=== PATIENT | female | born 1990 | race Caucasian/White ===

== ENCOUNTER 2016-05-22 09:06 | Emergency (ER) | payer BC ==
[~2016-05-22] VITALS: Ht 170.2 cm; Wt 81.6 kg
[2016-05-22 09:20] VITALS: BP 134/75
[2016-05-22] MEDS ORDERED: IV NORMAL SALINE 1000ML BAG 1,000 ML IV ONE (10:00)
[2016-05-22] MEDS ORDERED: ONDANSETRON PF 4 MG/2 ML VIAL. IV ONE (10:00)
[2016-05-22] MEDS ORDERED: KETOROLAC TROMETHAMINE 30 MG/ML SYRINGE. IV ONE (10:00)
[2016-05-22 10:14] LABS: BILIRUBIN,URINE NEGATIVE (NEG); GLUCOSE,URINE NEGATIVE (NEG); NITRITE,URINE NEGATIVE (NEG); PROTEIN,URINE NEGATIVE (NEG-TRACE); UROBILINOGEN,URINE 0.2 mg/dL (0.2 mg/dL)
[2016-05-22 10:18] LABS: BASO % 0 % (0-3); EOS % 2 % (0-3); HEMOGLOBIN 13.6 g/dL (12.0-15.5); LYMPH % 9 % (24-48); MEAN CORPUSCULAR HEMOGLOBIN 29 pg (25-35); MEAN CORPUSCULAR HGB CONC 33 g/dL (31-37); MEAN CORPUSCULAR VOLUME 86 fL (79-100); MONO % 6 % (0-9); NEUT % 83 % (31-73); PLATELET COUNT 292 x10^3/uL (140-400); RED BLOOD COUNT 4.76 x10^6/uL (3.50-5.40); RED CELL DISTRIBUTION WIDTH 13.2 % (11.5-14.5); WHITE BLOOD COUNT 11.1 x10^3/uL (4.0-11.0)
[2016-05-22 10:37] LABS: BACTERIA,URINE FEW /HPF (0-FEW); RBC,URINE >40 /HPF (0-2); SQUAMOUS EPITHELIAL CELL,UR MOD /LPF; WBC,URINE OCC /HPF (0-4)
[2016-05-22 10:44] LABS: CALCIUM 8.8 mg/dL (8.5-10.1); CREATININE 0.9 mg/dL (0.6-1.0); GFR 75.1; POTASSIUM 3.8 mmol/L (3.5-5.1)
--- NOTE | 2016-05-22 10:51 | PHYS DOC ---
Past Medical History Past Medical History: Kidney Stone Past Surgical History: Other Additional Past Surgical Histo: lithotripsy; right ankle Alcohol Use: Occasionally Drug Use: Marijuana Social History Narrative: last use "last weekend" Adult General Chief Complaint Chief Complaint: FLANK PAIN HPI HPI Patient is a 25 year old female who presents with right flank pain. Patient reports 3 hour history of intermittent colicky pain to right flank & right mid abdomen. Denies associated fevers/chills, nausea/vomiting, diarrhea/ constipation, dysuria/hematuria, vaginal bleeding, discharge. She reports previous history of similar pain associated with kidney stones & pyelonephritis. Has required lithotripsy in the past. Does not currently have a urologist. Review of Systems Review of Systems Constitutional: Denies fever or chills HENT: Denies nasal congestion or sore throat Respiratory: Denies cough or shortness of breath Cardiovascular: Denies chest pain GI: Reports abdominal pain, denies nausea, vomiting, or diarrhea : Denies dysuria or hematuria Musculoskeletal: Reports flank pain. Denies joint pain Integument: Denies rash or skin lesions Neurologic: Denies headache, focal weakness or sensory changes Current Medications Current Medications Current Medications Medications (Trade) Dose Ordered Sig/Amarjit Start Time Stop Time Status Last Admin Dose Admin Ketorolac Tromethamine (Toradol) 30 mg 1X ONCE 05/22/16 10:00 05/22/16 10:01 DC 05/22/16 10:14 30 MG Ondansetron HCl (Zofran) 4 mg 1X ONCE 05/22/16 10:00 05/22/16 10:01 DC 05/22/16 10:12 4 MG Sodium Chloride (Iv Sodium Chloride 0.9% 1000ml Bag) 1,000 ml @ 1,000 mls/hr 1X ONCE 05/22/16 10:00 05/22/16 10:59 DC 05/22/16 10:12 1,000 MLS/HR Allergies Allergies Allergies Coded Allergies Type Severity Reaction Last Updated Verified latex Allergy Unknown 05/22/16 Yes Physical Exam Physical Exam Constitutional: Well developed, well nourished, no acute distress, non-toxic appearance. HENT: Normocephalic, atraumatic, bilateral external ears normal, oropharynx moist, nose normal. Eyes: conjunctiva normal, no discharge. Neck: supple, no stridor. Cardiovascular: RRR, no murmurs, no edema. Lungs & Thorax: LCTAB, no wheezing, no respiratory distress. Abdomen: soft, mild right mid abdominal pain without focal RUQ or RLQ tenderness , no rebound/guarding, no masses, nondistended. Skin: Warm, dry, no erythema, no rash. Back: right CVA tenderness is present. Extremities: No tenderness, no edema. Neurologic: Alert and oriented X 3, no focal deficits noted. Psychologic: Affect normal, judgement normal, mood normal. Current Patient Data Vital Signs Vital Signs Date Time Temp Pulse Resp B/P Pulse Ox O2 Delivery O2 Flow Rate FiO2 05/22/16 09:20 98.1 72 20 134/75 98 Room Air 98.1 Lab Values Laboratory Tests Test 05/22/16 08:49 05/22/16 10:00 POC Urine HCG, Qualitative Hcg negative (Negative) White Blood Count 11.1x10^3/uL (4.0-11.0) H Red Blood Count 4.76x10^6/uL (3.50-5.40) Hemoglobin 13.6g/dL (12.0-15.5) Hematocrit 41.0% (36.0-47.0) Mean Corpuscular Volume 86fL (79-100) Mean Corpuscular Hemoglobin 29pg (25-35) Mean Corpuscular Hemoglobin Concent 33g/dL (31-37) Red Cell Distribution Width 13.2% (11.5-14.5) Platelet Count 292x10^3/uL (140-400) Neutrophils (%) (Auto) 83% (31-73) H Lymphocytes (%) (Auto) 9% (24-48) L Monocytes (%) (Auto) 6% (0-9) Eosinophils (%) (Auto) 2% (0-3) Basophils (%) (Auto) 0% (0-3) Neutrophils # (Auto) 9.2x10^3uL (1.8-7.7) H Lymphocytes # (Auto) 1.0x10^3/uL (1.0-4.8) Monocytes # (Auto) 0.6x10^3/uL (0.0-1.1) Eosinophils # (Auto) 0.2x10^3/uL (0.0-0.7) Basophils # (Auto) 0.0x10^3/uL (0.0-0.2) Urine Collection Type Unknown Urine Color Yellow Urine Clarity Clear Urine pH 7.0 Urine Specific [place] 1.020 Urine Protein Negativemg/dL (NEG-TRACE) Urine Glucose (UA) Negativemg/dL (NEG) Urine Ketones (Stick) Negativemg/dL (NEG) Urine Blood Large (NEG) Urine Nitrite Negative (NEG) Urine Bilirubin Negative (NEG) Urine Urobilinogen Dipstick 0.2mg/dL (0.2 mg/dL) Urine Leukocyte Esterase Small (NEG) Urine RBC >40/HPF (0-2) Urine WBC Occ/HPF (0-4) Urine Squamous Epithelial Cells Mod/LPF Urine Bacteria Few/HPF (0-FEW) Urine Mucus Mod/LPF Sodium Level 140mmol/L (136-145) Potassium Level 3.8mmol/L (3.5-5.1) Chloride Level 105mmol/L (98-107) Carbon Dioxide Level 25mmol/L (21-32) Anion Gap 10 (6-14) Blood Urea Nitrogen 14mg/dL (7-20) Creatinine 0.9mg/dL (0.6-1.0) Estimated GFR (Cockcroft-Gault) 75.1 Glucose Level 103mg/dL (70-99) H Calcium Level 8.8mg/dL (8.5-10.1) Laboratory Tests 05/22/16 10:00 Laboratory Tests 05/22/16 10:00 EKG EKG [] Radiology/Procedures Radiology/Procedures PROCEDURE: ABDOMEN PELVIS WO CONTRAST EXAM: Abdomen and pelvis CT without intravenous contrast. HISTORY: Right flank pain. Hematuria. TECHNIQUE: Computed tomographic images of the abdomen and pelvis were obtained without contrast. Multiplanar reformatting was performed. COMPARISON: 02/04/2012. FINDINGS: Evaluation of the lower thorax demonstrates a 3 mm pulmonary nodule within the left lower lobe, stable in appearance. There is no infiltrate or effusion. No hepatic lesion is seen. The gallbladder, pancreas, spleen and adrenal glands are unremarkable. There is [id number] right hydronephrosis and hydroureter extending to a 6 mm stone within the right bladder base at the ureterovesical junction. There are additional nonobstructing renal stones, the largest of which measures 3 mm on the right. There is a 1.5 cm hypodense lesion with peripheral calcification within the upper pole of the right kidney, possibly a milk of calcium cyst. The appendix is unremarkable. No abnormally thickened or dilated loop of bowel is seen. No pathologically enlarged lymph node is seen. There is an intrauterine contraceptive device in expected position. There is a prominent left ovary possibly due to multiple prominent follicles or a dominant follicular cyst measuring approximately 3.2 cm. There is a small amount of nonspecific pelvic free fluid. There is no suspicious osseous lesion. IMPRESSION: 1. Mild to moderate right obstructive uropathy secondary to a 6 mm stone within the right ureterovesical junction. There are additional nonobstructing renal stones, the largest of which measures 3 mm on the right. 2. 1.5 cm hypodense lesion with peripheral calcification within the right kidney, possibly a milk of calcium cyst or partially hemorrhagic cyst. This is more conspicuous compared to the prior study, difficult to characterize in the absence of contrast. Renal sonography can be performed to confirm benignity. 3. Stable 3 mm left lower lobe pulmonary nodule. The greater than 4 year course of stability favors benignity. 4. Prominent left ovary likely due to multiple follicles or a dominant follicular cyst measuring 3.2 cm. PQRS Compliance Statement: One or more of the following individualized dose reduction techniques were utilized for this examination: 1. Automated exposure control 2. Adjustment of the mA and/or kV according to patient size 3. Use of iterative reconstruction technique DICTATED and SIGNED BY: MARCELL PADILLA MD DATE: 05/22/16 1137[] Course & Med Decision Making Course & Med Decision Making Pertinent Labs and Imaging studies reviewed. (See chart for details) Patient presents with flank pain. UA shows large blood without infection. Discussed risks/benefits of obtaining CT & she would like to proceed to know size of suspected ureteral stone since she has had urologic intervention before. CT shows 6 mm stone as above. Patient's pain well controlled with toradol. She also received IV fluid bolus & zofran. Discussed results with patient & mother. She feels better & requests discharge home. Gave prescriptions for tramadol, zofran, & flomax. Recommend rest, PO hydration, follow up with Dr. Lopez in the urology clinic in about 1 week. Come back for high fever, severe pain, uncontrolled vomiting, any otherwise worsening condition. Discharged home in stable & improved condition. [] Dragon Disclaimer Dragon Disclaimer This electronic medical record was generated, in whole or in part, using a voice recognition dictation system. Departure Departure Impression: Primary Impression: Ureteral colic Additional Impression: Hematuria Disposition: 01 HOME, SELF-CARE Condition: STABLE Referrals: DADA LOPEZ DO Patient Instructions: Kidney Stones, [id number] Additional Instructions: You were seen in the emergency department today for flank pain. You have a kidney stone which is 6 mm in diameter. Please rest, drink fluids, use Zofran for nausea and tramadol for pain, take Flomax. Follow-up in one week with Dr. Lopez in the urology clinic. Return to the emergency department for high fever, severe pain, uncontrolled vomiting, any otherwise worsening condition. Scripts Tamsulosin Hcl (Flomax)0.4 Mg Cap.er.24h0.4 Mg PO DAILY #10 TAB Prov:RAJIV ROJAS MD 05/22/16 Ondansetron (Zofran Odt)4 Mg Tab.rapdis1 Tab SL Q8HRS PRN NAUSEA #10 TAB Prov:RAJIV ROJAS MD 05/22/16 Tramadol Hcl 50 Mg Tablet1 Tab PO PRN Q6HRS PRN PAIN #20 TAB Prov:RAJIV ROJAS MD 05/22/16 Problem Qualifiers RAJIV ROJAS MD May 22, 2016 10:51
--- NOTE | 2016-05-22 11:45 | RAD ---
EXAM: Abdomen and pelvis CT without intravenous contrast. HISTORY: Right flank pain. Hematuria. TECHNIQUE: Computed tomographic images of the abdomen and pelvis were obtained without contrast. Multiplanar reformatting was performed. COMPARISON: 02/04/2012. FINDINGS: Evaluation of the lower thorax demonstrates a 3 mm pulmonary nodule within the left lower lobe, stable in appearance. There is no infiltrate or effusion. No hepatic lesion is seen. The gallbladder, pancreas, spleen and adrenal glands are unremarkable. There is [id number] right hydronephrosis and hydroureter extending to a 6 mm stone within the right bladder base at the ureterovesical junction. There are additional nonobstructing renal stones, the largest of which measures 3 mm on the right. There is a 1.5 cm hypodense lesion with peripheral calcification within the upper pole of the right kidney, possibly a milk of calcium cyst. The appendix is unremarkable. No abnormally thickened or dilated loop of bowel is seen. No pathologically enlarged lymph node is seen. There is an intrauterine contraceptive device in expected position. There is a prominent left ovary possibly due to multiple prominent follicles or a dominant follicular cyst measuring approximately 3.2 cm. There is a small amount of nonspecific pelvic free fluid. There is no suspicious osseous lesion. IMPRESSION: 1. Mild to moderate right obstructive uropathy secondary to a 6 mm stone within the right ureterovesical junction. There are additional nonobstructing renal stones, the largest of which measures 3 mm on the right. 2. 1.5 cm hypodense lesion with peripheral calcification within the right kidney, possibly a milk of calcium cyst or partially hemorrhagic cyst. This is more conspicuous compared to the prior study, difficult to characterize in the absence of contrast. Renal sonography can be performed to confirm benignity. 3. Stable 3 mm left lower lobe pulmonary nodule. The greater than 4 year course of stability favors benignity. 4. Prominent left ovary likely due to multiple follicles or a dominant follicular cyst measuring 3.2 cm. PQRS Compliance Statement: One or more of the following individualized dose reduction techniques were utilized for this examination: 1. Automated exposure control 2. Adjustment of the mA and/or kV according to patient size 3. Use of iterative reconstruction technique
[2016-05-22] MEDS ORDERED: TAMS0.4C97 PO (12:09)
[2016-05-22] MEDS ORDERED: ONDA4TAB10 SL (12:09)
[2016-05-22] MEDS ORDERED: TRAM50TA PO (12:09)
== END 2016-05-22 12:51 | disposition home or self-care (01) ==
LOC: ER 09:06
DX: N23 Unspecified renal colic (principal); R31.9 Hematuria, unspecified; F12.10 Cannabis abuse, uncomplicated; Z91.040 Latex allergy status; Z87.442 Personal history of urinary calculi
CPT/HCPCS: 36415; 74176; 80048; 81001; 81025; 85027; 87086; 96361; 96374; 96375; 99285; J1885; J2405; J7030